=== PATIENT | female | born 1935 | race Caucasian/White ===

== ENCOUNTER 2017-12-21 10:43 | Outpatient (CLI) | payer MEDICARE, BC ==
[~2017-12-21 10:43] MED LIST: ALBU18HF2 IH; AZO1OS EACHEYE; ESTRADIOL; FIORINAL PO; HYDR-565 PO; MECL-111 PO; PRED20TA PO; PROP10TA10 PO
[2017-12-21 11:06] LABS: TOTAL HEMOGLOBIN 14.2 G/dl (12.0-16.0)
[2017-12-21] MEDS ORDERED: albuterol 2.5 MG/3 ML nebule NEB ONE (11:25)
== END 2017-12-21 23:59 | disposition home or self-care (01) ==
LOC: RT 10:43
PROVIDERS: ATTEND Internal Medicine
DX: R06.02 Shortness of breath (principal); F17.200 Nicotine dependence, unspecified, uncomplicated; R06.09 Other forms of dyspnea
CPT/HCPCS: 85018; 94010; 94727; 94729; A6446; A6449

== ENCOUNTER 2019-11-06 07:54 | Observation (INO) | payer MEDICARE, BC ==
[~2019-11-06] VITALS: Ht 154.9 cm; Wt 70.9 kg
[2019-11-06] VITALS: BP 94/44
[~2019-11-06 07:54] MED LIST changes: +HYDR-4353 PO; -HYDR-565 PO; -MECL-111 PO; +MECL-159 PO
[2019-11-06] MEDS ORDERED: normal saline 1000ML IV soln IV ONE (08:15)
[2019-11-06] MEDS ORDERED: ondansetron/PF 4mg/2ml inj IV ONE (08:15)
[2019-11-06] MEDS ORDERED: famotidine/PF 10 mg/ml inj IV ONE (08:15)
[2019-11-06 08:29] LABS: BASOPHILS % (AUTO) 0.1 % (0-1); EOSINOPHILS % (AUTO) 0.5 % (0-6); HEMATOCRIT 42.8 % (35.0-45.0); HEMOGLOBIN 14.5 g/dl (12.0-16.0); LYMPHOCYTES # (AUTO) 0.7 X10'3 (1.1-4.8); LYMPHOCYTES % (AUTO) 8.3 % (21-51); MEAN CORPUSCULAR HEMOGLOBIN 30.3 PG (27.0-31.0); MEAN CORPUSCULAR HGB CONC 33.9 g/dL (33.0-36.5); MEAN CORPUSCULAR VOLUME 89.5 FL (78-98); MONOCYTES # (AUTO) 0.5 X10'3 (0-0.9); MONOCYTES % (AUTO) 5.7 % (2-12); NEUTROPHILS # (AUTO) 7.7 X10'3 (1.8-7.7); NEUTROPHILS % (AUTO) 85.4 % (42-75); PLATELET COUNT 205 X10'3 (140-440); RED BLOOD COUNT 4.78 X10'6 (4.20-5.60); RED CELL DISTRIBUTION WIDTH 13.1 % (11.5-14.5)
[2019-11-06 08:47] LABS: ALANINE AMINOTRANSFERASE 17 U/L (12-78); ALBUMIN 3.7 G/DL (3.4-5.0); ALBUMIN/GLOBULIN RATIO 1.1 (1.1-1.5); ALKALINE PHOSPHATASE 76 IU/L (46-116); AMYLASE 34 U/L (25-115); ANION GAP 13 (8-16); ASPARTATE AMINO TRANSFERASE 26 U/L (10-37); BILIRUBIN,TOTAL 0.4 MG/DL (0.1-1.0); BLOOD UREA NITROGEN 13 MG/DL (7-18); BUN/CREATININE RATIO 14.9 (6.6-38.0); CALCIUM 9.7 MG/DL (8.5-10.1); CHLORIDE 108 MMOL/L (99-107); CREATININE 0.87 MG/DL (0.40-0.90); GLUCOSE 130 MG/DL (70-104); LIPASE 148 U/L (73-393); SODIUM 141 MMOL/L (135-145); TOTAL CARBON DIOXIDE 20.5 MMOL/L (24-32); TOTAL PROTEIN 7.1 G/DL (6.4-8.2); eGFR 62 ML/MIN
[2019-11-06] MEDS ORDERED: ALLO300T2 PO (09:53)
[2019-11-06] MEDS ORDERED: ALLO300T72 PO (09:53)
[2019-11-06] MEDS ORDERED: acetaminophen 325mg tablet PO PRN ×2 (10:40)
[2019-11-06] MEDS ORDERED: HYDROcodone/acetaminophen 5mg/325mg tablet PO PRN (10:40)
[2019-11-06] MEDS ORDERED: magnesium hydroxide 30ml (MOM) UD suspension PO PRN (10:40)
[2019-11-06] MEDS ORDERED: bisacodyl 10mg suppository rectal RC PRN (10:40)
[2019-11-06] MEDS ORDERED: potassium Cl 20 mEq SR tablet PO PRN ×2 (10:40)
[2019-11-06] MEDS ORDERED: magnesium Cl slow-release 64mg tablet PO PRN (10:40)
[2019-11-06] MEDS ORDERED: metoclopramide 5 mg/ml inj IV PRN (10:40)
[2019-11-06] MEDS ORDERED: magnesium 2GM in 50ml NS 50 ML IV PRN (10:40)
[2019-11-06] MEDS ORDERED: potassium CL 10mEq/100ml bag 100 ML IV PRN ×2 (10:40)
[2019-11-06] MEDS ORDERED: magnesium 4gm in 100ml NS 100 ML IV PRN (10:40)
[2019-11-06] MEDS ORDERED: HYDROcodone/acetaminophen 10/325mg tab PO PRN (10:40)
[2019-11-06] MEDS ORDERED: ondansetron/PF 4mg/2ml inj IV PRN (10:40)
[2019-11-06] MEDS ORDERED: loperamide 2mg capsule PO PRN (10:40)
[2019-11-06] MEDS ORDERED: mag hydrox/Alum hydrox/simeth 30ml oral suspension PO PRN (10:40)
[2019-11-06] MEDS: normal saline 1000ml 1,000 ML IV SCH ×2 (10:52→20:24)
[2019-11-06 11:06] LABS: CLARITY,URINE SLIGHTLY CLOUDY (Clear); COLOR,URINE STRAW (Yellow); GLUCOSE, URINE NEGATIVE (Neg); KETONES,URINE NEGATIVE (Neg); LEUKOCYTE ESTERASE ,URINE LARGE (Neg); NITRITES, URINE NEGATIVE (Neg); OCCULT BLOOD,URINE MODERATE (Neg); PROTEIN,URINE NEGATIVE (Neg); UROBILINOGEN,URINE 0.2 E.U/dL (0.2-1.0)
[2019-11-06 11:09] LABS: UA COLLECTION TYPE VOIDED
[2019-11-06 11:19] LABS: MUCUS STRANDS FEW /LPF (Neg); SQUAMOUS EPITHELIAL CELL,UR MANY /LPF (FEW); TRANSITIONAL EPI CELLS,URINE FEW /HPF
[2019-11-06] MEDS ORDERED: DICL100G15 TOP (11:19)
[2019-11-06] MEDS ORDERED: BRIM5DRO16 EACHEYE (11:19)
[2019-11-06] MEDS ORDERED: CARSR60C PO (11:19)
[2019-11-06] MEDS ORDERED: P-EP-21 PO (11:19)
[2019-11-06 11:20] LABS: BACTERIA,URINE 3+ /HPF (Neg); WBC,URINE 20-30 /HPF (0-4)
[2019-11-06] MEDS ORDERED: LORA-983 PO (12:22)
--- NOTE | 2019-11-06 14:00 | NUR ---
Patient arrived from ER via gurney, ambulated to bed safely with cane. VSS. Awake, alert and oriented. Daughter at bedside. Denies any pain at this time.
[2019-11-06 14:15] VITALS: BP 125/61
[2019-11-06] MEDS ORDERED: CefTRIAXone/D5W-Rocephin 1gm 50 ML IV SCH (15:00)
--- NOTE | 2019-11-06 15:10 | NUR ---
Dr Lyon seeing patient
[2019-11-06 20:00] VITALS: BP 122/56
[2019-11-06] MEDS: K and/or MAG REPLACEMENT MC SCH (20:00)
[2019-11-06] MEDS: brimonidine 0.2% 5 ML ophthalmic drops EACHEYE SCH (20:18)
[2019-11-06] MEDS ORDERED: temazepam 15mg capsule PO PRN (21:00)
--- NOTE | 2019-11-06 21:50 | NUR ---
Patient in room [facility]. I have received report from KHUSHI Lai and had the opportunity to ask questions and assume patient care. Addendum: 11/06/19 at 2152 by Myra Valdez RN Amended: Links added.
[2019-11-07] MEDS: normal saline 1000ml 1,000 ML IV SCH (03:42)
--- NOTE | 2019-11-07 06:05 | NUR ---
Problems reprioritized. Patient report given, questions answered & plan of care reviewed with KHUSHI Sheikh. Addendum: 11/07/19 at 0605 by Myra Valdez RN Amended: Links added.
[2019-11-07 06:14] LABS: BASOPHILS % (AUTO) 0.4 % (0-1); EOSINOPHILS # (AUTO) 0.1 X10'3 (0-0.9); EOSINOPHILS % (AUTO) 2.9 % (0-6); HEMATOCRIT 32.9 % (35.0-45.0); HEMOGLOBIN 11.3 g/dl (12.0-16.0); LYMPHOCYTES # (AUTO) 1.1 X10'3 (1.1-4.8); LYMPHOCYTES % (AUTO) 31.1 % (21-51); MEAN CORPUSCULAR HEMOGLOBIN 31.1 PG (27.0-31.0); MEAN CORPUSCULAR HGB CONC 34.4 g/dL (33.0-36.5); MEAN CORPUSCULAR VOLUME 90.3 FL (78-98); MEAN PLATELET VOLUME 8.2 FL (7.4-10.4); MONOCYTES # (AUTO) 0.5 X10'3 (0-0.9); MONOCYTES % (AUTO) 13.5 % (2-12); NEUTROPHILS # (AUTO) 1.8 X10'3 (1.8-7.7); NEUTROPHILS % (AUTO) 52.1 % (42-75); PLATELET COUNT 157 X10'3 (140-440); RED BLOOD COUNT 3.64 X10'6 (4.20-5.60); RED CELL DISTRIBUTION WIDTH 13.2 % (11.5-14.5); WHITE BLOOD COUNT 3.4 X10'3 (4.5-11.0)
[2019-11-07 06:20] LABS: ALANINE AMINOTRANSFERASE 14 U/L (12-78); ALBUMIN 2.5 G/DL (3.4-5.0); ALKALINE PHOSPHATASE 54 IU/L (46-116); ANION GAP 6 (8-16); ASPARTATE AMINO TRANSFERASE 18 U/L (10-37); BILIRUBIN,TOTAL 0.2 MG/DL (0.1-1.0); BLOOD UREA NITROGEN 7 MG/DL (7-18); CALCIUM 8.3 MG/DL (8.5-10.1); CHLORIDE 115 MMOL/L (99-107); GLUCOSE 88 MG/DL (70-104); MAGNESIUM 1.5 MG/DL (1.5-2.4); POTASSIUM 3.7 MMOL/L (3.5-5.1); SODIUM 146 MMOL/L (135-145); TOTAL CARBON DIOXIDE 24.9 MMOL/L (24-32); TOTAL PROTEIN 4.9 G/DL (6.4-8.2); eGFR 79 ML/MIN
--- NOTE | 2019-11-07 06:49 | NUR ---
Patient in room [facility]. I have received report from KHUSHI Renteria and had the opportunity to ask questions and assume patient care. patient currently resting in bed, bed locked and low, call light in reach, some SOB observed, patient states that she sometimes wakes feeling short of breath, assisted patient to sit up and she stated she felt better, will continue to monitor.
[2019-11-07 07:00] VITALS: BP 122/55
[2019-11-07] MEDS: brimonidine 0.2% 5 ML ophthalmic drops EACHEYE SCH (07:52)
[2019-11-07] MEDS: K and/or MAG REPLACEMENT MC SCH (07:52)
[2019-11-07] MEDS ORDERED: enoxaparin 30mg/0.3ml syringe SQ SCH (08:00)
[2019-11-07 11:22] VITALS: BP 112/60
--- NOTE | 2019-11-07 14:50 | NUR ---
Received orders for patient to discharge to home. Patient belongings gathered, discharge orders given, patient instructed on what to do if symptoms recur, instructed on gastroenteritis, IV removed, catheter tip intact hemostasis achieved, wrist bands removed, patient was able to dress self, daughter arrived to take her home, taken to lobby by auxiliary, stable at time of discharge
--- NOTE | 2019-11-09 10:01 | NUR ---
Case management DC follow up: spoke to pt via telephone: reports feeling, "pretty good". pt thinks she over did it yesterday because she was feeling so good, and agrees to take it easy today. follow up appt w/PCP/Zbigniew 11/15/2019. Denies SOB, resp distress, cp, emergent general pain, abd pain, NV, CRAFT, dizziness. verbalizes understanding of meds and why prescribed, taking as ordered, no ase noted. verbalizes understanding of s/s that would warrant 9-11/ER visit for evaluation. needs met, questions answered at DC. No further questions at this time.
== END 2019-11-07 14:50 | disposition home or self-care (01) ==
LOC: ER 07:54 → ED HOLD 10:36 → SUR 3N 13:51
PROVIDERS: ADMIT Family Medicine; ATTEND Family Medicine
DX: A08.4 Viral intestinal infection, unspecified (principal); E87.0 Hyperosmolality and hypernatremia; R11.2 Nausea with vomiting, unspecified; R53.1 Weakness; M10.9 Gout, unspecified; J45.909 Unspecified asthma, uncomplicated; R82.998 Other abnormal findings in urine; R19.7 Diarrhea, unspecified; Z96.641 Presence of right artificial hip joint; Z90.710 Acquired absence of both cervix and uterus; Z85.841 Personal history of malignant neoplasm of brain; Z79.899 Other long term (current) drug therapy; Z88.0 Allergy status to penicillin; Z88.5 Allergy status to narcotic agent
CPT/HCPCS: 36415; 71045; 74176; 80053; 81001; 82150; 83605; 83690; 83735; 84443; 85025; 85610; 87040; 87502; 87503; 93005; 96361; 96365; 96372; 96375; 96376; 97116; 97161; 97530; 99285; G0378; J0696; J1650; J2405; J2765; J3490; J7030

== ENCOUNTER 2019-11-21 09:41 | Emergency (ER) | payer MEDICARE, BC ==
[~2019-11-21] VITALS: Ht 154.9 cm; Wt 69.0 kg
[~2019-11-21 09:41] MED LIST changes: +ALLO300T2 PO; +ALLO300T72 PO; -AZO1OS EACHEYE; +BRIM5DRO16 EACHEYE; +DICL100G15 TOP; -ESTRADIOL; -FIORINAL PO; -HYDR-4353 PO; +LORA-983 PO; -PRED20TA PO; -PROP10TA10 PO
[2019-11-21 11:31] LABS: BASOPHILS % (AUTO) 0.5 % (0-1); EOSINOPHILS % (AUTO) 1.2 % (0-6); HEMATOCRIT 40.7 % (35.0-45.0); HEMOGLOBIN 13.6 g/dl (12.0-16.0); LYMPHOCYTES # (AUTO) 0.7 X10'3 (1.1-4.8); LYMPHOCYTES % (AUTO) 19.9 % (21-51); MEAN CORPUSCULAR HEMOGLOBIN 29.8 PG (27.0-31.0); MEAN CORPUSCULAR HGB CONC 33.3 g/dL (33.0-36.5); MEAN CORPUSCULAR VOLUME 89.5 FL (78-98); MEAN PLATELET VOLUME 8.1 FL (7.4-10.4); MONOCYTES # (AUTO) 0.6 X10'3 (0-0.9); MONOCYTES % (AUTO) 17.2 % (2-12); NEUTROPHILS % (AUTO) 61.2 % (42-75); PLATELET COUNT 190 X10'3 (140-440); RED BLOOD COUNT 4.54 X10'6 (4.20-5.60); RED CELL DISTRIBUTION WIDTH 13.5 % (11.5-14.5); WHITE BLOOD COUNT 3.3 X10'3 (4.5-11.0)
[2019-11-21 11:43] LABS: PARTIAL THROMBOPLASTIN TIME 26 SECONDS (22-32)
[2019-11-21 11:47] LABS: ALANINE AMINOTRANSFERASE 19 U/L (12-78); ALBUMIN 3.2 G/DL (3.4-5.0); ALBUMIN/GLOBULIN RATIO 0.9 (1.1-1.5); ALKALINE PHOSPHATASE 73 IU/L (46-116); ANION GAP 11 (8-16); ASPARTATE AMINO TRANSFERASE 30 U/L (10-37); BILIRUBIN,TOTAL 0.3 MG/DL (0.1-1.0); BLOOD UREA NITROGEN 10 MG/DL (7-18); BUN/CREATININE RATIO 11.4 (6.6-38.0); CALCIUM 9.1 MG/DL (8.5-10.1); CHLORIDE 102 MMOL/L (99-107); CREATININE 0.88 MG/DL (0.40-0.90); GLUCOSE 103 MG/DL (70-104); POTASSIUM 4.1 MMOL/L (3.5-5.1); SODIUM 140 MMOL/L (135-145); TOTAL CARBON DIOXIDE 26.8 MMOL/L (24-32); TOTAL PROTEIN 6.7 G/DL (6.4-8.2); eGFR 61 ML/MIN
[2019-11-21 12:01] LABS: LARGE PLATELETS FEW; PLATELET ESTIMATE NORMAL; TOTAL CELLS COUNTED 100
[2019-11-21] MEDS ORDERED: normal saline 1000ML IV soln IVB ONE (12:10)
[2019-11-21 13:39] VITALS: BP 117/53
[2019-11-21 15:11] LABS: CLARITY,URINE SLIGHTLY CLOUDY (Clear); COLOR,URINE YELLOW (Yellow); GLUCOSE, URINE NEGATIVE (Neg); KETONES,URINE 15 mg/dl (Neg); LEUKOCYTE ESTERASE ,URINE MODERATE (Neg); NITRITES, URINE NEGATIVE (Neg); OCCULT BLOOD,URINE NEGATIVE (Neg); PH,URINE 6.5 (4.8-8.0); PROTEIN,URINE NEGATIVE (Neg); UROBILINOGEN,URINE 0.2 E.U/dL (0.2-1.0)
[2019-11-21 15:15] LABS: UA COLLECTION TYPE CLN CATCH MIDSTREAM
[2019-11-21 15:18] LABS: RBC,URINE 0-2 /HPF (0-2); WBC,URINE 20-30 /HPF (0-4)
[2019-11-21 15:19] LABS: BACTERIA,URINE 2+ /HPF (Neg); MUCUS STRANDS MODERATE /LPF (Neg); RENAL CELLS, URINE FEW /HPF; SQUAMOUS EPITHELIAL CELL,UR MODERATE /LPF (FEW); TRANSITIONAL EPI CELLS,URINE FEW /HPF; WBC CLUMPS,URINE FEW /HPF (NEGATIVE)
== END 2019-11-21 15:00 | disposition home or self-care (01) ==
LOC: ER 09:42
DX: J40 Bronchitis, not specified as acute or chronic (principal); H40.9 Unspecified glaucoma; G89.29 Other chronic pain; Z85.9 Personal history of malignant neoplasm, unspecified; F41.9 Anxiety disorder, unspecified; Z90.710 Acquired absence of both cervix and uterus; Z98.890 Other specified postprocedural states; Z88.0 Allergy status to penicillin; Z88.5 Allergy status to narcotic agent; Z79.899 Other long term (current) drug therapy
CPT/HCPCS: 36415; 71045; 80053; 81001; 83605; 83880; 84484; 85025; 85610; 85730; 87040; 87077; 87186; 93005; 99285; J7030

== ENCOUNTER 2019-11-27 07:08 | Emergency (ER) | payer MEDICARE, BC ==
[~2019-11-27] VITALS: Ht 154.9 cm; Wt 69.5 kg
[2019-11-27 09:27] LABS: PARTIAL THROMBOPLASTIN TIME 25 SECONDS (22-32)
[2019-11-27 09:30] LABS: ALANINE AMINOTRANSFERASE 15 U/L (12-78); ALBUMIN 3.3 G/DL (3.4-5.0); ALKALINE PHOSPHATASE 69 IU/L (46-116); ANION GAP 9 (8-16); ASPARTATE AMINO TRANSFERASE 17 U/L (10-37); BILIRUBIN,TOTAL 0.3 MG/DL (0.1-1.0); BLOOD UREA NITROGEN 8 MG/DL (7-18); BUN/CREATININE RATIO 10.1 (6.6-38.0); CALCIUM 9.3 MG/DL (8.5-10.1); CHLORIDE 107 MMOL/L (99-107); CREATININE 0.79 MG/DL (0.40-0.90); GLUCOSE 106 MG/DL (70-104); POTASSIUM 3.8 MMOL/L (3.5-5.1); SODIUM 142 MMOL/L (135-145); TOTAL CARBON DIOXIDE 26.5 MMOL/L (24-32); TOTAL PROTEIN 6.5 G/DL (6.4-8.2); eGFR 69 ML/MIN
--- NOTE | 2019-11-27 09:40 | NUR ---
PT AMB TO BATHROOM AND NOW BACK ON [facility].
[2019-11-27 09:53] LABS: EOSINOPHILS # (AUTO) 0.2 X10'3 (0-0.9); EOSINOPHILS % (AUTO) 4.9 % (0-6); HEMATOCRIT 37.3 % (35.0-45.0); HEMOGLOBIN 12.8 g/dl (12.0-16.0); LYMPHOCYTES # (AUTO) 0.6 X10'3 (1.1-4.8); LYMPHOCYTES % (AUTO) 17.6 % (21-51); MEAN CORPUSCULAR HEMOGLOBIN 30.3 PG (27.0-31.0); MEAN CORPUSCULAR HGB CONC 34.4 g/dL (33.0-36.5); MEAN CORPUSCULAR VOLUME 88.1 FL (78-98); MEAN PLATELET VOLUME 8.1 FL (7.4-10.4); MONOCYTES # (AUTO) 0.3 X10'3 (0-0.9); MONOCYTES % (AUTO) 8.5 % (2-12); NEUTROPHILS # (AUTO) 2.4 X10'3 (1.8-7.7); PLATELET COUNT 162 X10'3 (140-440); RED BLOOD COUNT 4.23 X10'6 (4.20-5.60); WHITE BLOOD COUNT 3.5 X10'3 (4.5-11.0)
[2019-11-27 11:32] VITALS: BP 127/86
== END 2019-11-27 11:33 | disposition home or self-care (01) ==
LOC: ER 07:09
DX: R06.00 Dyspnea, unspecified (principal); J45.909 Unspecified asthma, uncomplicated; F41.9 Anxiety disorder, unspecified; R06.02 Shortness of breath; Z90.710 Acquired absence of both cervix and uterus; Z85.9 Personal history of malignant neoplasm, unspecified; Z98.890 Other specified postprocedural states; Z88.0 Allergy status to penicillin; Z88.5 Allergy status to narcotic agent; Z79.899 Other long term (current) drug therapy
CPT/HCPCS: 36415; 71045; 80053; 83880; 84484; 85025; 85610; 85730; 93005; 99285

== ENCOUNTER 2021-09-15 15:21 | Emergency (ER) | payer MEDICARE, BC ==
[~2021-09-15] VITALS: Ht 165.1 cm; Wt 75.0 kg
[~2021-09-15 15:21] MED LIST changes: +LEVO750T46 PO
[2021-09-15] MEDS ORDERED: normal saline 1000ML IV soln IVB ONE (16:45)
[2021-09-15 17:10] LABS: EOSINOPHILS % (AUTO) 0 % (0-6); LYMPHOCYTES # (AUTO) 0.7 X10'3 (1.1-4.8); MONOCYTES # (AUTO) 0.3 X10'3 (0-0.9); RED CELL DISTRIBUTION WIDTH 13.3 % (11.5-14.5)
[2021-09-15 17:12] LABS: BASOPHILS % (AUTO) 0.2 % (0-1); HEMATOCRIT 38.4 % (35.0-45.0); HEMOGLOBIN 13.2 g/dl (12.0-16.0); LYMPHOCYTES % (AUTO) 19.9 % (21-51); MEAN CORPUSCULAR HEMOGLOBIN 30.7 PG (27.0-31.0); MEAN CORPUSCULAR HGB CONC 34.5 g/dL (33.0-36.5); MEAN CORPUSCULAR VOLUME 89.2 FL (78-98); MEAN PLATELET VOLUME 8.6 FL (7.4-10.4); MONOCYTES % (AUTO) 9.6 % (2-12); NEUTROPHILS # (AUTO) 2.3 X10'3 (1.8-7.7); NEUTROPHILS % (AUTO) 70.3 % (42-75); PLATELET COUNT 121 X10'3 (140-440); RED BLOOD COUNT 4.31 X10'6 (4.20-5.60); WHITE BLOOD COUNT 3.3 X10'3 (4.5-11.0)
[2021-09-15 17:16] LABS: ALANINE AMINOTRANSFERASE 27 U/L (12-78); ALBUMIN/GLOBULIN RATIO 0.8 (1.1-1.5); ALKALINE PHOSPHATASE 67 IU/L (46-116); ANION GAP 11 (8-16); ASPARTATE AMINO TRANSFERASE 48 U/L (10-37); BILIRUBIN,TOTAL 0.3 MG/DL (0.1-1.0); BLOOD UREA NITROGEN 14 MG/DL (7-18); BUN/CREATININE RATIO 16.5 (6.6-38.0); CALCIUM 8.2 MG/DL (8.5-10.1); CHLORIDE 103 MMOL/L (99-107); CREATININE 0.85 MG/DL (0.40-0.90); GLUCOSE 109 MG/DL (70-104); POTASSIUM 3.5 MMOL/L (3.5-5.1); SODIUM 139 MMOL/L (135-145); TOTAL CARBON DIOXIDE 24.7 MMOL/L (24-32); TOTAL PROTEIN 6.8 G/DL (6.4-8.2); eGFR 63 ML/MIN
[2021-09-15 17:25] LABS: CLARITY,URINE SLIGHTLY CLOUDY (Clear); COLOR,URINE YELLOW (Yellow); GLUCOSE, URINE NEGATIVE (Neg); KETONES,URINE 40 mg/dl (Neg); LEUKOCYTE ESTERASE ,URINE NEGATIVE (Neg); NITRITES, URINE NEGATIVE (Neg); OCCULT BLOOD,URINE TRACE-LYSED (Neg); PH,URINE 5.5 (4.8-8.0); PROTEIN,URINE 30 mg/dl (Neg); UROBILINOGEN,URINE 0.2 E.U/dL (0.2-1.0)
[2021-09-15 17:26] LABS: UA COLLECTION TYPE STRAIGHT CATH
[2021-09-15] MEDS ORDERED: dexamethasone sod phosphate 10mg/ml inj IV STA (17:28)
--- NOTE | 2021-09-15 17:28 | NUR ---
APTIENT RECEIVED IN BED 7.STARTED ON [facility] PRECAUTION DUE TO COVID.
[2021-09-15] MEDS ORDERED: ALBU6.7H9 INH (17:31)
[2021-09-15] MEDS ORDERED: BUDE180A INH (17:31)
[2021-09-15] MEDS ORDERED: DEXA6TAB6 PO (17:31)
[2021-09-15 17:33] LABS: MUCUS STRANDS MANY /LPF (Neg); SQUAMOUS EPITHELIAL CELL,UR MODERATE /LPF (FEW)
[2021-09-15 17:35] LABS: HYALINE CASTS 0-3 /LPF (NEGATIVE)
[2021-09-15 17:36] LABS: FINE GRANULAR CAST 0-3 /LPF (NEGATIVE)
[2021-09-15 17:37] LABS: BACTERIA,URINE 1+ /HPF (Neg)
[2021-09-15 17:38] LABS: RBC,URINE 0-2 /HPF (0-2); WBC,URINE 0-4 /HPF (0-4)
[2021-09-15 17:39] LABS: TRANSITIONAL EPI CELLS,URINE FEW /HPF
--- NOTE | 2021-09-15 18:45 | NUR ---
Cld patient daughter Luli and advised that the she is ready to be discharged home. She is on her way.
[2021-09-15 19:02] VITALS: BP 128/65
== END 2021-09-15 19:31 | disposition home or self-care (01) ==
LOC: ER 15:21
DX: U07.1 COVID-19 (principal); R11.0 Nausea; R53.1 Weakness; R53.81 Other malaise; R06.02 Shortness of breath; R42 Dizziness and giddiness; J45.909 Unspecified asthma, uncomplicated; G89.29 Other chronic pain; F41.9 Anxiety disorder, unspecified; Z85.9 Personal history of malignant neoplasm, unspecified; Z90.710 Acquired absence of both cervix and uterus; Z98.890 Other specified postprocedural states; Z60.2 Problems related to living alone; Z88.0 Allergy status to penicillin; Z88.5 Allergy status to narcotic agent; Z79.2 Long term (current) use of antibiotics; Z79.899 Other long term (current) drug therapy
CPT/HCPCS: 36415; 71045; 80053; 81001; 83880; 84484; 85025; 87635; 93005; 96374; 99285; C9803; J1100; J7030